=== PATIENT | female | born 1950 | race Two or more races ===

== ENCOUNTER → 2017-04-09 | Outpatient (CLI) | payer MEDICARE, OTHER ==
--- NOTE | 2017-04-09 14:15 | REP ---
Clinical: Postmenopausal bleeding . Technique: Transabdominal pelvic ultrasound followed by transvaginal examination for better evaluation of the endometrium and adnexa. Findings: Bladder is unremarkable and measures 9.8 x 7.6 x 5.5 cm . Heterogeneous anteverted uterus measures 6.3 x 2.7 x 5.2 cm . The endometrial complex measures 3.5 mm thickness. No discrete uterine or endometrial abnormalities are appreciated. Bilateral ovaries are normal in appearance. Right ovary measures 1.8 x 1.0 x 2.0 cm. Left ovary measures 1.1 x 2.0 x 1.2 cm. No pelvic fluid or adnexal mass lesion. Impression: 1. Essentially normal pelvic ultrasound. No obvious abnormalities are appreciated.
== END ==
LOC: M WHC 12:20
PROVIDERS: ATTEND Nurse Practitioner Women's Health
DX: N95.0 Postmenopausal bleeding (principal)
CPT/HCPCS: 76830; 76856; 88143; G0463

== ENCOUNTER → 2017-04-09 | Outpatient (REF) | payer MEDICARE, OTHER | LOC: M SFHCWAGY 11:59 | PROVIDERS: ATTEND Nurse Practitioner Women's Health | DX: Z12.4 Encounter for screening for malignant neoplasm of cervix (principal); N95.0 Postmenopausal bleeding ==

== ENCOUNTER 2017-10-18 10:57 | Day surgery (SDC) | payer MEDICARE, OTHER ==
[2017-10-18] MEDS ORDERED: NS 1,000 ML IV (11:30)
[2017-10-18] MEDS ORDERED: LIDOCAINE 2% INJ 100 MG/5 ML SDV (FOR ANES.) As Ordered (11:47)
[2017-10-18] MEDS ORDERED: PROPOFOL 200 MG/20 ML VIAL As Ordered ×2 (11:47)
== END 2017-10-18 12:42 | disposition home or self-care (01) ==
LOC: M OPP 10:57
DX: R12 Heartburn (principal); K44.9 Diaphragmatic hernia without obstruction or gangrene; K21.9 Gastro-esophageal reflux disease without esophagitis; I10 Essential (primary) hypertension; E78.5 Hyperlipidemia, unspecified; G43.909 Migraine, unspecified, not intractable, without status migrainosus; F41.9 Anxiety disorder, unspecified; R42 Dizziness and giddiness; Z78.0 Asymptomatic menopausal state; R06.83 Snoring; Z87.442 Personal history of urinary calculi; Z88.2 Allergy status to sulfonamides; Z91.040 Latex allergy status; Z91.030 Bee allergy status; Z79.899 Other long term (current) drug therapy; Z80.3 Family history of malignant neoplasm of breast
CPT/HCPCS: 43239

== ENCOUNTER → 2017-11-16 | Outpatient (CLI) | payer MEDICARE, OTHER | LOC: M WHC 12:21 | DX: Z12.31 Encounter for screening mammogram for malignant neoplasm of breast (principal) | CPT/HCPCS: 77067 ==

== ENCOUNTER → 2018-03-31 | Outpatient (REF) | payer MEDICARE, OTHER ==
[2018-03-31 15:38] LABS: VITAMIN B12 LEVEL 644 PG/ML (247-911)
== END ==
LOC: M LAB REF 13:39
DX: Z13.21 Encounter for screening for nutritional disorder (principal)
CPT/HCPCS: 82607

== ENCOUNTER → 2018-10-18 | Outpatient (CLI) | payer MEDICARE, OTHER ==
[~2018-10-18] MED LIST: CALCTAB29 PO; CHLO25TA PO; FLAX1CAP2 PO; MAGN400C2 PO; NEXI40CA PO; POTA10TA16 PO; PRAV40TA2 PO; SERT25TA88 PO; VITA500T PO
[2018-10-18 13:14] LABS: BLOOD UREA NITROGEN 11 MG/DL (7-18); CREATININE FOR GFR 0.67 MG/DL (0.55-1.30); GLOMERULAR FILTRATION RATE > 60.0 (>45)
== END ==
LOC: M WUC 09:23
PROVIDERS: ATTEND Physician Assistant
DX: R82.79 Other abnormal findings on microbiological examination of urine (principal); M54.9 Dorsalgia, unspecified

== ENCOUNTER → 2018-10-19 | Outpatient (CLI) | payer MEDICARE, OTHER ==
[~2018-10-19] MED LIST changes: +GASTROGRAFIN SOLUTION 30ML (Q9963) As Ordered ONE; +ISOVUE-370 76% 125ML VIAL (Q9967 PER ML) As Ordered ONE
--- NOTE | 2018-10-19 14:20 | REP ---
Clinical: Abdominal pain and dorsalgia Technique: Axial contrast enhanced images from the lung bases to the pubic symphysis using oral (per protocol) and 100 ml Isovue 370 intravenous contrast material with coronal and sagittal re-formations. Findings: Lung bases are relatively clear. Visualized heart and pericardium within normal limits. Liver, spleen, pancreas, gallbladder, bilateral adrenal glands and kidneys are normal. The enteric system is without obstruction or acute inflammatory process. Pelvis demonstrates normal bladder and age-appropriate uterus/adnexa. No ascites. No free air. No adenopathy. Atherosclerotic changes of the aorta noted without aneurysm or dissection. Musculoskeletal structures demonstrate age-related changes without focal osseous abnormality. Impression: No obvious acute abdominopelvic pathology appreciated. Electronically Signed by Jose E Moscoso MD 10/19/2018 02:12 P
== END ==
LOC: M RAD 12:03
PROVIDERS: ATTEND Physician Assistant
DX: M54.9 Dorsalgia, unspecified (principal); R82.79 Other abnormal findings on microbiological examination of urine
CPT/HCPCS: 74177; Q9963; Q9967

== ENCOUNTER → 2018-11-17 | Outpatient (CLI) | payer MEDICARE, OTHER ==
[~2018-11-17] MED LIST changes: -GASTROGRAFIN SOLUTION 30ML (Q9963) As Ordered ONE; -ISOVUE-370 76% 125ML VIAL (Q9967 PER ML) As Ordered ONE
--- NOTE | 2018-11-17 11:23 | REPMRS ---
Patient History The patient states she had a clinical breast exam in 10/2018. Patient is postmenopausal and has history of squamous cell skin cancer at age 66 and melanoma skin cancer at age 67. Family history of breast cancer at age 50 or over in paternal aunt. Benign excisional biopsy of the left breast, 1977. No Hormone Replacement Therapy 3D TOMOSYNTHESIS WAS PERFORMED. Digital Woman Screen Mammo: November 17, 2018 - Exam #: [id number] Bilateral CC and MLO view(s) were taken. Technologist: Berenice Barboza, Technologist Prior study comparison: November 16, 2017, digital woman screen mammo performed at [facility]. 2017, bilateral digital mammo screening bilat. FINDINGS: The breast tissue is heterogeneously dense. This may lower the sensitivity of mammography. There has been no change in the appearance of the mammogram from the prior studies. There is a moderate amount of residual fibroglandular tissue which is fairly symmetric. There is no interval development of dominant mass, areas of architectural distortion, or clustered microcalcification typical of malignancy. Assessment: BI-RADS/ACR category 1 mammogram. Negative Mammogram. Recommendation Routine screening mammogram in 1 year (for women over age 40). This mammogram was interpreted with the aid of an FDA-approved computer-aided dectection system. Electronically Signed By: Eric Leonard MD 11/17/18 0844
== END ==
LOC: M WHC 10:26
PROVIDERS: ATTEND Nurse Practitioner Adult Health
DX: Z12.31 Encounter for screening mammogram for malignant neoplasm of breast (principal); Z78.0 Asymptomatic menopausal state; Z85.828 Personal history of other malignant neoplasm of skin

== ENCOUNTER → 2018-12-22 | Outpatient (CLI) | payer MEDICARE, OTHER ==
--- NOTE | 2018-12-23 08:49 | REP ---
MR BRAIN WITHOUT CONTRAST: HISTORY: TIAs. Areas of increased signal intensity on T2-weighted images are present in the basal ganglia. These represent old lacunar infarctions. Areas of increased signal intensity on T2-weighted images are present in the periventricular and subcortical white matter. This represents small vessel ischemic disease. There is no intraparenchymal hemorrhage, acute infarct, mass or midline shift. There ventricular system is normal in appearance. There is no extracerebral collection. The sinuses are clear. IMPRESSION: 1. Old bilateral basal ganglia lacunar infarctions. 2. Small vessel ischemic disease. Electronically Signed by Casa Young MD 12/23/2018 08:55 A
--- NOTE | 2018-12-23 08:50 | REP ---
MRA BRAIN WITHOUT CONTRAST: HISTORY: TIAs. 3D [id number] MR angiography was performed at the level of the [place]. There is no aneurysm, arteriovenous malformation or atherosclerotic lesion. Major intracranial vessels are patent. The left vertebral artery is dominant. IMPRESSION: Normal MRA brain. Electronically Signed by Casa Young MD 12/23/2018 08:55 A
== END ==
LOC: M RAD 17:02
PROVIDERS: ATTEND Nurse Practitioner Adult Health
DX: G45.9 Transient cerebral ischemic attack, unspecified (principal); Z86.73 Personal history of transient ischemic attack (TIA), and cerebral infarction without residual deficits

== ENCOUNTER → 2019-07-23 | Outpatient (REF) | payer MEDICARE, OTHER ==
[~2019-07-23] MED LIST changes: +SERT25TA21 PO; -SERT25TA88 PO
== END ==
LOC: M WUC 13:06
PROVIDERS: ATTEND Physician Assistant
DX: N39.0 Urinary tract infection, site not specified (principal)

== ENCOUNTER → 2020-11-13 | Outpatient (CLI) | payer MEDICARE, BC ==
[~2020-11-13] MED LIST changes: +VITA-243 PO; -VITA500T PO
--- NOTE | 2020-11-13 12:05 | REPMRS ---
Patient History The patient states she had a clinical breast exam in August 2020. Family history of breast cancer at age 50 or over in paternal aunt. Benign excisional biopsy of the left breast, 1977. No Hormone Replacement Therapy No breast complaints, MRS history sheet signed by the patient. Digital Woman Screen Mammo: November 13, 2020 - Exam #: [id number] Bilateral CC and MLO view(s) were taken. Technologist: Lili Madrigal RT Prior study comparison: November 17, 2018, bilateral digital woman screen mammo performed at [facility]. November 16, 2017, digital woman screen mammo performed at [facility]. FINDINGS: There are scattered fibroglandular densities. Screening. Digital screening (2D) mammography was performed bilaterally in the CC and MLO projections. Additionally, breast tomosynthesis (3D mammography) was performed bilaterally in the CC and MLO projections. Todays exam was compared to the prior exams(s). By history, the patient has no complaints of a palpable breast abnormality or other significant breast complaints. The breasts are unchanged in size and shape. Once again, dense heterogeneous fibroglandular elements are seen bilaterally in a stable appearing pattern but to such a degree that the sensitivity of the mammogram in detecting cancer is decreased.There are no monik-soft tissue densities or spiculated masses. There is no internal architectural distortion. Stable benign appearing calcifications are again seen bilaterally. There are no suspicious monik-calcific clusters. Skin thickening or nipple retraction is not present. IMPRESSION: BI-RADS Category 2- Benign Findings(s). There is no evidence of malignant alteration of the breasts. Followup examination recommended in one year. The Volpara volumetric breast density category is B, there are scattered areas of fibroglandular density. This mammogram was read with the assistance of [employer]an FDA approved computer aided detection system for mammography. Chetaner-Josephck score 6.1 Negative x-ray reports should not delay surgical consultation if a dominant or clinically suspicious mass is present. Not all breast cancers can be identified by mammography. Therefore, we recommend that you continue to perform regular breast self-examination and physical examination and then promptly contact your physician of any concerns or changes. Adenosis and dense breasts may obscure an underlying neoplasm. Assessment: BI-RADS/ACR category 2 mammogram. Benign Findings. Recommendation Routine screening mammogram of both breasts in 1 year. Electronically Signed By: Ok Agudelo DO 11/13/20 [id number]
== END ==
LOC: M WHC 10:56
PROVIDERS: ATTEND Nurse Practitioner Adult Health
DX: Z12.31 Encounter for screening mammogram for malignant neoplasm of breast (principal)

== ENCOUNTER → 2021-05-21 | Outpatient (CLI) | payer MEDICARE, OTHER ==
--- NOTE | 2021-05-21 14:09 | DEXAMM ---
INDICATION: AGE RELATED OSTEOPOROSIS W/O CURRENT PATH FX. COMPARISON: None. TECHNIQUE: Bone density was measured using dual-energy x-ray absorptiometry (DEXA). FINDINGS: AP SPINE L1-L4 BMD 1.024 g/cm2 Young Adult T-Score -1.4 Age Matched Z-Score 0.3. LT FEMUR, TOTAL BMD 0.745 g/cm2 Young Adult T-Score -2.1 Age Matched Z-Score -0.5. LT NECK BMD 0.799 g/cm2 Young Adult T-Score -1.7 Age Matched Z-Score 0.0. RT FEMUR, TOTAL BMD 0.717 g/cm2 Young Adult T-Score -2.3 Age Matched Z-Score -0.8. RT NECK BMD 0.756 g/cm2 Young Adult T-Score -2.0 Age Matched Z-Score -0.3. IMPRESSION: There is low bone density of the spine. There is low bone density of the left hip. There is low bone density of the right hip. FOLLOW-UP: Recommendation for the next bone density exam: 2 years. <Electronically signed by Eric Leonard > 05/21/21 [id number]
== END ==
LOC: M WHC 11:16
PROVIDERS: ATTEND Internal Medicine
DX: M81.0 Age-related osteoporosis without current pathological fracture (principal); M85.88 Other specified disorders of bone density and structure, other site; M85.851 Other specified disorders of bone density and structure, right thigh; M85.852 Other specified disorders of bone density and structure, left thigh

== ENCOUNTER → 2021-06-16 | Outpatient (CLI) | payer MEDICARE, OTHER ==
--- NOTE | 2021-06-16 13:34 | REP ---
INDICATION: Assess stenosis COMPARISON: None TECHNIQUE: Carotid ultrasonography was performed bilaterally FINDINGS: Right: CCA systolic: 72.7 centimeters/second CCA diastolic: 15.1 centimeters/second ICA systolic: 61.4 centimeters/second ICA diastolic: 23.1 centimeters/second ICA CCA ratio: 0.84 Left: CCA systolic: 87.9 centimeters/second CCA diastolic: 13.2 centimeters/second ICA systolic: 55.1 centimeters/second ICA diastolic: 18.2 centimeters/second ICA CCA ratio: 0.63 Vertebral artery: Right: Antegrade flow left: Antegrade flow There is a minimal amount of echogenic material seen along the carotid arterial [place] with minimal acoustic shadow IMPRESSION: According to the SRU criteria there is less than 50% stenosis of the internal carotid artery bilaterally. This is secondary to a minimal degree of both calcified and noncalcified atheromatous plaque formation. <Electronically signed by Ok Agudelo > 06/16/21 [id number]
== END ==
LOC: M RAD 12:47
PROVIDERS: ATTEND Internal Medicine
DX: G45.9 Transient cerebral ischemic attack, unspecified (principal)

== ENCOUNTER → 2021-08-04 | Outpatient (REF) | payer MEDICARE, OTHER ==
[~2021-08-04] MED LIST changes: +POTA-149 PO; -POTA10TA16 PO
== END ==
LOC: M LAB REF 16:21
PROVIDERS: ATTEND Internal Medicine
DX: L02.11 Cutaneous abscess of neck (principal)

== ENCOUNTER → 2022-08-07 | Outpatient (CLI) | payer MEDICARE, OTHER | LOC: M WHC 11:07 | PROVIDERS: ATTEND Internal Medicine | DX: Z12.31 Encounter for screening mammogram for malignant neoplasm of breast (principal) ==

== ENCOUNTER → 2022-12-23 | Outpatient (REF) | payer MEDICARE, OTHER ==
[2022-12-23 16:57] LABS: PERCENT SATURATION 8.7 % (13.2-45.0)
[2022-12-23 17:00] LABS: FERRITIN 5.1 NG/ML (7.3-270.7)
== END ==
LOC: M LAB REF 16:17
PROVIDERS: ATTEND Internal Medicine
DX: D64.9 Anemia, unspecified (principal)

== ENCOUNTER 2023-05-05 06:57 | Day surgery (SDC) | payer MEDICARE, OTHER ==
[~2023-05-05] VITALS: Ht 170.2 cm; Wt 59.6 kg
[~2023-05-05 06:57] MED LIST changes: +ALEN70TA82 PO; +BAYE81TA7 PO; +BIOT1CAP2 PO; +BIOT5TAB3 PO; +CALCCAP4 PO; +CINN500C15 PO; +FERR325T19 PO; +GNP1000C11 PO; +LISI20TA33 PO; +MELA1LIQ2 PO; +NS 1,000 ML IV ONE; +OMEP-173 PO; +RA M10TA PO; +ROSU5TAB5 PO; +VITA100054 PO
[2023-05-05] MEDS ORDERED: propofoL 200 MG/20 ML VIAL As Ordered ONE (07:57)
[2023-05-05 08:32] VITALS: TEMP 96
[2023-05-05 08:48] VITALS: BP 115/65; O2SAT 100
== END 2023-05-05 09:01 | disposition home or self-care (01) ==
LOC: M OPP 06:57
PROVIDERS: ATTEND Internal Medicine Gastroenterology
DX: Z12.11 Encounter for screening for malignant neoplasm of colon (principal); K64.0 First degree hemorrhoids; K57.30 Diverticulosis of large intestine without perforation or abscess without bleeding; Z91.89 Other specified personal risk factors, not elsewhere classified; Z79.02 Long term (current) use of antithrombotics/antiplatelets; Z79.82 Long term (current) use of aspirin; Z79.899 Other long term (current) drug therapy; Z88.2 Allergy status to sulfonamides; Z91.030 Bee allergy status; Z91.040 Latex allergy status

== ENCOUNTER → 2023-08-18 | Outpatient (CLI) | payer MEDICARE, OTHER ==
[~2023-08-18] MED LIST changes: -NS 1,000 ML IV ONE
== END ==
LOC: M WHC 13:51
PROVIDERS: ATTEND Internal Medicine
DX: Z12.31 Encounter for screening mammogram for malignant neoplasm of breast (principal); M81.0 Age-related osteoporosis without current pathological fracture

== ENCOUNTER → 2023-12-29 | Outpatient (REF) | payer MEDICARE, OTHER ==
[~2023-12-29] MED LIST changes: +ROSU5TAB40 PO; -ROSU5TAB5 PO
[2023-12-29 13:47] LABS: PERCENT SATURATION 16.7 % (13.2-45.0)
[2023-12-29 13:49] LABS: FERRITIN 14.7 NG/ML (7.3-270.7)
== END ==
LOC: M LAB REF 11:33
PROVIDERS: ATTEND Internal Medicine
DX: D50.9 Iron deficiency anemia, unspecified (principal)

== ENCOUNTER 2024-03-17 12:58 | Day surgery (SDC) | payer MEDICARE, OTHER ==
[~2024-03-17] VITALS: Ht 170.2 cm; Wt 59.6 kg
[~2024-03-17 12:58] MED LIST changes: +ACETAMINOPHEN 1000MG 100ML IV BAG As Ordered ONE; +KETOROLAC 60MG 2ML VIAL As Ordered ONE; +LIDOCAINE 2% 100MG/5ML SDV (FOR ANES.) As Ordered ONE; +MIDAZOLAM INJ 2MG/2ML VIAL As Ordered ONE; +ONDANSETRON 4MG 2ML VIAL As Ordered ONE; +fentaNYL 100 MCG/2 ML INJECTION As Ordered ONE; +propofoL 200 MG/20 ML VIAL As Ordered ONE
[2024-03-17 13:31] LABS: HEMATOCRIT 39.3 % (36.0-47.0); HEMOGLOBIN 13.4 g/dl (12.0-15.5); MEAN CORPUSCULAR HEMOGLOBIN 31.9 pg (27.0-33.0); MEAN CORPUSCULAR HGB CONC 34.1 g/dl (32.0-36.5); MEAN CORPUSCULAR VOLUME 93.6 fl (80.0-96.0); PLATELET COUNT, AUTOMATED 200 10^3/uL (150-450); WHITE BLOOD COUNT 5.7 10^3/uL (4.0-10.0)
[2024-03-17] MEDS: LR 1,000 ML IV SCH (13:36)
[2024-03-17] MEDS: SCOPOLAMINE 1MG TRANSDERMAL PATCH TOP ONE (15:37)
[2024-03-17] MEDS: ceFAZolin 2 GM/D5W 50 ML IV BAG As Ordered ONE (16:18)
[2024-03-17] MEDS: VASOPRESSIN INJ 20UNITS/ML 1ML VIAL As Ordered ONE (16:40)
[2024-03-17] MEDS ORDERED: fentaNYL 100 MCG/2 ML INJECTION IV PRN (17:10)
[2024-03-17] MEDS ORDERED: ONDANSETRON 4MG 2ML VIAL IV PRN (17:10)
[2024-03-17] MEDS ORDERED: oxyCODONE 5MG TAB PO PRN (17:10)
[2024-03-17] MEDS ORDERED: MORPHINE 2 MG/ML 1ML VIAL IV PRN (17:10)
[2024-03-17 18:40] VITALS: BP 165/79; TEMP 96.8; O2SAT 100
== END 2024-03-17 18:45 | disposition home or self-care (01) ==
LOC: M SDC 12:58
PROVIDERS: ATTEND Specialist
DX: N81.10 Cystocele, unspecified (principal); R06.83 Snoring; Z91.040 Latex allergy status; Z88.2 Allergy status to sulfonamides; Z91.030 Bee allergy status; Z79.899 Other long term (current) drug therapy
CPT/HCPCS: 36415; 57240; 85027; 88302; J0131; J0665; J0690; J1100; J1885; J2250; J2405; J2598; J3010

== ENCOUNTER → 2024-05-26 | Outpatient (REF) | payer MEDICARE, OTHER ==
[~2024-05-26] MED LIST changes: -ACETAMINOPHEN 1000MG 100ML IV BAG As Ordered ONE; -KETOROLAC 60MG 2ML VIAL As Ordered ONE; -LIDOCAINE 2% 100MG/5ML SDV (FOR ANES.) As Ordered ONE; -MIDAZOLAM INJ 2MG/2ML VIAL As Ordered ONE; -ONDANSETRON 4MG 2ML VIAL As Ordered ONE; -fentaNYL 100 MCG/2 ML INJECTION As Ordered ONE; -propofoL 200 MG/20 ML VIAL As Ordered ONE
[2024-05-26 13:57] LABS: PERCENT SATURATION 18.5 % (13.2-45.0)
[2024-05-26 13:59] LABS: FERRITIN 23.6 NG/ML (7.3-270.7)
== END ==
LOC: M LAB REF 12:42
PROVIDERS: ATTEND Internal Medicine
DX: D50.9 Iron deficiency anemia, unspecified (principal)

== ENCOUNTER → 2024-11-24 | Outpatient (REF) | payer MEDICARE, OTHER ==
[~2024-11-24] MED LIST changes: -ROSU5TAB40 PO; +ROSU5TAB49 PO
[2024-11-24 13:51] LABS: PERCENT SATURATION 27.3 % (13.2-45.0)
[2024-11-24 13:53] LABS: FERRITIN 31.3 NG/ML (7.3-270.7)
== END ==
LOC: M LAB REF 12:51
PROVIDERS: ATTEND Internal Medicine
DX: D50.9 Iron deficiency anemia, unspecified (principal)

== ENCOUNTER → 2024-12-10 | Outpatient (REF) | payer MEDICARE, OTHER ==
[~2024-12-10] MED LIST changes: +CHOL25CA2 PO; -VITA100054 PO
== END ==
LOC: M WUC 17:00
PROVIDERS: ATTEND Student in an Organized Health Care Education/Training Program
DX: R30.0 Dysuria (principal)

== ENCOUNTER → 2025-01-25 | Outpatient (CLI) | payer MEDICARE, OTHER ==
[~2025-01-25] MED LIST changes: -PRAV40TA2 PO; +PRAV40TA85 PO
== END ==
LOC: M CARPUL 15:00
PROVIDERS: ATTEND Internal Medicine
DX: R01.1 Cardiac murmur, unspecified (principal); I08.0 Rheumatic disorders of both mitral and aortic valves; I37.1 Nonrheumatic pulmonary valve insufficiency; I77.810 Thoracic aortic ectasia

== ENCOUNTER → 2025-05-25 | Outpatient (REF) | payer MEDICARE, OTHER ==
[2025-05-25 15:24] LABS: IRON (FE) 106.0 UG/DL (50-170); PERCENT SATURATION 32.4 % (13.2-45.0)
== END ==
LOC: M LAB REF 14:16
PROVIDERS: ATTEND Internal Medicine
DX: D50.9 Iron deficiency anemia, unspecified (principal)